=== PATIENT | female | born 1970 | race Caucasian/White ===

== ENCOUNTER 2017-07-26 17:29 | Emergency (ER) | payer OTHER ==
[2017-07-26] MEDS ORDERED: 0.9 % SODIUM CHLORIDE 1,000 ML IV ONE (17:47)
[2017-07-26] MEDS ORDERED: ONDANSETRON HCL/PF 4 MG/ 2ML VIAL ONE (17:47)
[2017-07-26] MEDS ORDERED: ONDANSETRON HCL/PF 4 MG/ 2ML VIAL IVP ONE (18:03)
[2017-07-26] MEDS ORDERED: 0.9 % SODIUM CHLORIDE 500 ML IV ONE (18:03)
--- NOTE | 2017-07-26 18:08 | ED Physician Documentation ---
General Adult - HISTORIAN Historian: patient, spouse - HPI Chief Complaint: Cough/ Upper Respiratory Additional Information: pt ret [facility] 2 d ago had what appeared as travelers diarrhea which is now resolving but also dev fever temp 100.6 non prod cough sob chills. she is conc re elec imbal plus infection Onset: days ago (diarrhea 4-5 d aago now better but sore throat and resp congestion today) Timing: still present Severity: moderate - ROS CONST: recent illness, chills EYES/ENT: denies: problems with vision CVS/RESP: shortness of breath, cough (non prod). denies: chest pain GI/: denies: abdominal pain, problems urinating MS/SKIN/LYMPH: none NEURO/PSYCH: denies: headache, fainting, dizziness, tingling, numbness, difficulty walking, difficulty with speech - PAST HX Past History: none Surgeries/Procedures: BTL Allergies/Adverse Reactions: Allergies Allergy/AdvReac Type Severity Reaction Status Date / Time No Known Allergies Allergy Verified 07/26/17 18:07 Home Medications: Ambulatory Orders Medication Instructions Recorded Atorvastatin Calcium [Atorvastatin 10 mg PO DAILY 07/26/17 Calcium] - SOCIAL HX Smoking History: non-smoker Alcohol Use: rarely Drug Use: none - FAMILY HX Family History: Yes - REVIEWED ASSESSMENTS Nursing Assessment Reviewed: Yes Vitals Reviewed: Yes ED Results Lab/Radiology - Radiology Radiology Impressions: xray reveals normal apparent chest but stomach markedly dilated pushing diaphram upward. small and larfg bowel distentin -- ct followed - Orders Orders: ED Orders Category Date Time Status CBC/PLATELET/DIFF Routine Lab 07/26/17 Ordered CMP Routine Lab 07/26/17 Ordered 0.9 % Sodium Chloride [Normal Saline] 1,000 ml Med 07/26/17 17:47 Discontinued IV .STK-MED NORMAL SALINE @ 1,000 MLS/HR(500ml BOLUS) Med 07/26/17 18:03 Ordered 0.9 % Sodium Chloride [Normal Saline] 500 ml IV NOW Ondansetron HCl/Pf [Zofran 4 mg/2 ml] Med 07/26/17 17:47 Discontinued 4 mg .ROUTE .STK-MED ONE Ondansetron HCl/Pf [Zofran 4 mg/2 ml] Med 07/26/17 18:03 Once 4 mg IVP NOW ONE EKG WITH COMPARISON Stat Ther 07/26/17 Ordered General Adult Physical Exam - PHYSICAL EXAM GENERAL APPEARANCE: moderate distress EENT: eye inspection normal NECK: normal inspection, supple RESPIRATORY: no resp distress, breath sounds normal CVS: reg rate & rhythm, heart sounds normal ABDOMEN: soft, non-tender, distended. No: normal bowel sounds (decreased), rebound, guarding EXTREMITIES: non-tender, normal range of motion, no evidence of injury, no edema NEURO: oriented X3, motor nml, sensation nml, mood/affect nml Discharge Clincal Impression: poss partial bowel obst suspect ileus, recent tainted food/water/diarrhea, slight hypokalemia-[id number] Referrals: Abbey Flores FNP [Primary Care Provider] - 2 Days Comments: discc w/ pt husb [facility] tnsf patient Condition: Good Disposition: XF [facility] Decision to Admit: [id number] Decision Time: 20:29
[2017-07-26 18:21] LABS: MEAN CORPUSCULAR HEMOGLOBIN 29.8 pg (28.0-34.0); MEAN CORPUSCULAR VOLUME 89.9 fl (80.0-100.0)
[2017-07-26 18:23] LABS: eGFR (African) > 60; eGFR (Non-African) > 60
--- NOTE | 2017-07-26 18:57 | Diagnostic Imaging Report ---
NAVI GONZALEZ [facility] [address] [facility] [address] [place], [place]. [address] Report Submission Date: Jul 26, 2017 6:55:25 PM CDT Patient Study Name: POPPY DICK Date: Jul 26, 2017 6:24:42 PM CDT Modality Type: DX Gender: F Description: CHEST,ABDOMEN : 66 Institution: [facility] Physician: NAVI GONZALEZ single view chest and 3 views the abdomen Clinical history: Diarrhea and abdominal pain Findings: There is a gas distended stomach. There is gas seen in large and small bowel. The lungs are clear. Impression: Gas distended stomach which is indeterminate.. even though gas is seen in the small bowel, volvulus is not excluded. CT Abdomen/pelvis is recommended for further evaluation. Electronically signed on Jul 26, 2017 6:55:25 PM CDT by: Pietro SANDOVAL
[2017-07-26] MEDS ORDERED: SIMETHICONE 80 MG TAB.CHEW PO STA (19:46)
--- NOTE | 2017-07-26 20:00 | Diagnostic Imaging Report ---
NAVI GONZALEZ [facility] [address] [facility] [address] [place], [place]. [address] Report Submission Date: Jul 26, 2017 7:49:29 PM CDT Patient Study Name: POPPY DICK Date: Jul 26, 2017 7:17:06 PM CDT Modality Type: CT\SR Gender: F Description: CT ABD PELVIS W/ CON : 66 Institution: [facility] Physician: NAVI GONZALEZ Examination: CT Abdomen/pelvis History: PT STATES SOB X 1 DAY, DIARRHEA X 1 WEEK (Hx) Comparison exams: Plain film dated 23 July 2017 Technique: CT Abdomen/pelvis with IV protocol. Findings: Liver, spleen, adrenals, pancreas, kidneys and gallbladder are without gross irregularity. No abnormal enhancement. No gallstone. Bilateral renal cysts. No suspicious renal calcifications. Ureters do not appear to be dilated in their course through the abdomen and pelvis. No central calcification. Abdominal aorta without evidence for aneurysm. Cardiac silhouette not enlarged. No pericardial effusion Significantly prominent air filled stomach. Dilation of the distal esophagus. Small bowel with fluid centrally. Loops of mildly prominent small bowel within the left midabdomen associated with air-fluid levels. Left lateral abdomen free fluid collection. Prominent air and stool-filled large bowel. Appendix is visualized and is without inflammatory changes. Ovarian cysts. Lower pelvic free fluid. Osseous structures demonstrate degenerative changes. Lung bases demonstrate atelectasis. No effusion. Impression: Significantly prominent and dilated stomach with dilation of the distal esophagus. Correlate with any underlying medical conditions/surgery regarding possible functional obstruction of the distal stomach. Prominent large bowel with air and stool centrally - again correlation with any underlying bowel condition recommended. Loops of prominent small bowel left midabdomen with air-fluid levels. Associated free fluid collection. GI/Surgical consultation recommended. Consider dedicated upper and lower GI imaging if clinically warranted. Electronically signed on Jul 26, 2017 7:49:29 PM CDT by: Octavio SANDOVAL
[2017-07-26 21:05] VITALS: BP 117/82
[2017-07-27 06:04] LABS: APPEARANCE,URINE CLOUDY (CLEAR); COLOR,URINE YELLOW (YELLOW); OCCULT BLOOD,URINE NEGATIVE (NEGATIVE); UROBILINOGEN URINE 0.2 Eu (0.2-1.0)
== END 2017-07-26 20:35 | disposition short-term general hospital (02) ==
LOC: ED 17:29
DX: R19.7 Diarrhea, unspecified (principal); R50.9 Fever, unspecified; R05 Cough
CPT/HCPCS: 74022; 74177; 80053; 81002; 85025; 93005; J2405; J7060; 96365; 96366; 99284; Q9967; S1016